=== PATIENT | male | born 2000 | race Caucasian/White ===

== ENCOUNTER 2022-03-01 03:05 | Emergency (ER) | payer BC ==
[~2022-03-01] VITALS: Ht 182.9 cm; Wt 72.7 kg
[2022-03-01 03:35] LABS: BASO # 0.1 K/mm3 (0.0-0.2); BASO % 0.9 % (0.0-2.0); EOS # 0.2 K/mm3 (0.0-0.7); EOS % 2.3 % (0.0-4.0); GRAN # 6.6 K/mm3 (1.4-6.5); GRAN % 63.3 % (42.2-75.2); HEMATOCRIT 46.6 % (36.0-47.0); HEMOGLOBIN 16.4 g/dl (12.5-16.1); LYMPH # 2.5 K/mm3 (1.2-3.4); LYMPH % 23.7 % (20.0-51.0); MEAN CELL VOLUME 86 fl (80.0-95.0); MEAN CORPUSCULAR HEMOGLOBIN 30 pg (26-32); MEAN CORPUSCULAR HGB CONC 35 g/dl (33.0-37.0); MEAN PLATELET VOLUME 8.8 fl (7.4-10.4); MONO % 9.3 % (1.7-9.3); PLATELET COUNT 312 K/mm3 (130-400); REDCELL DISTRIBUTION WIDTH-CV 11.6 % (11.5-14.5)
[2022-03-01 03:53] LABS: ALANINE AMINOTRANSFERASE 13 U/L (0-55); ALBUMIN 4.3 gm/dL (3.5-5.0); ALKALINE PHOSPHATASE 91 U/L (40-150); ANION GAP 19 mmol/L (7-16); AST,SGOT 20 U/L (5-34); BILIRUBIN,TOTAL 0.7 mg/dL (0.2-1.2); BLOOD UREA NITROGEN 9 mg/dL (8-21); CALCIUM 8.6 mg/dL (8.4-10.2); CARBON DIOXIDE 18 mmol/L (22-29); CHLORIDE 103 mmol/L (98-107); CREATININE, serum 0.95 mg/dL (0.72-1.25); GLUCOSE 114 mg/dL (70-99); POTASSIUM 3.3 mmol/L (3.5-4.5); SODIUM 140 mmol/L (136-145); TOTAL PROTEIN 7.1 gm/dL (6.2-8.1)
[2022-03-01 03:58] LABS: ACETAMINOPHEN < 1.0 ug/mL (10-30); SALICYLATE < 5.0 mg/dL (15.0-30.0)
[2022-03-01 03:59] LABS: ALCOHOL(ethanol),MEDICAL 310 mg/dL (0-10)
[2022-03-01 05:51] LABS: TRICYCLIC ANTIDEPRESS URINE NEGATIVE
[2022-03-01 11:16] VITALS: BP 102/56; PULSE 84
== END 2022-03-01 11:25 | disposition home or self-care (01) ==
LOC: COL.ER 03:05
PROVIDERS: Personal Emergency Response Attendant
DX: F10.929 Alcohol use, unspecified with intoxication, unspecified (principal); Y90.8 Blood alcohol level of 240 mg/100 ml or more
CPT/HCPCS: J1630; J2060; J7030